=== PATIENT | male | born 1990 | race Two or more races ===

== ENCOUNTER 2020-03-03 22:59 | Emergency (ER) | payer MEDICAID, OTHER ==
[~2020-03-03] VITALS: Ht 167.6 cm; Wt 70.5 kg
[~2020-03-03 22:59] MED LIST: OMEP20 PO
[2020-03-03 23:01] VITALS: BP 142/86
[2020-03-03] MEDS ORDERED: MIRT-89 PO (23:06)
[2020-03-04] MEDS ORDERED: LIDOCAINE 1% 10 ML VIAL INJ ONE
[2020-03-04] MEDS ORDERED: PERTUSS(ACELL),DIPH,TET VAC/PF 0.5 ML VIAL IM ONE ×2 (01:15)
== END 2020-03-04 01:26 | disposition home or self-care (01) ==
LOC: EMS 22:59
DX: S61.412A Laceration without foreign body of left hand, initial encounter (principal); F17.210 Nicotine dependence, cigarettes, uncomplicated; F12.90 Cannabis use, unspecified, uncomplicated; W25.XXXA Contact with sharp glass, initial encounter; Y93.89 Activity, other specified; Y92.89 Other specified places as the place of occurrence of the external cause; Y99.8 Other external cause status
CPT/HCPCS: 12002; 90471; 90715; 99283; J3490

== ENCOUNTER 2020-03-16 04:20 | Emergency (ER) | payer OTHER ==
[~2020-03-16] VITALS: Ht 167.6 cm; Wt 63.6 kg
[~2020-03-16 04:20] MED LIST changes: +MIRT-89 PO; -OMEP20 PO
[2020-03-16 04:40] VITALS: BP 119/74
[2020-03-16] MEDS ORDERED: AMOX TR/POT CLAV 875 MG/125 MG TABLET PO ONE (05:00)
[2020-03-16] MEDS ORDERED: BACITRACIN 0.9 GM PACKET OINTMENT TP ONE (05:00)
== END 2020-03-16 05:33 | disposition home or self-care (01) ==
LOC: EMS 04:20
DX: S61.211D Laceration without foreign body of left index finger without damage to nail, subsequent encounter (principal); L03.012 Cellulitis of left finger; F12.90 Cannabis use, unspecified, uncomplicated; F17.210 Nicotine dependence, cigarettes, uncomplicated; W25.XXXD Contact with sharp glass, subsequent encounter

== ENCOUNTER 2020-03-30 22:33 | Emergency (ER) | payer OTHER ==
[~2020-03-30] VITALS: Ht 167.6 cm; Wt 70.5 kg
[2020-03-31] MEDS ORDERED: BACITRACIN 0.9 GM PACKET OINTMENT TP ONE (00:15)
[2020-03-31 00:25] VITALS: BP 129/81
== END 2020-03-31 00:29 | disposition home or self-care (01) ==
LOC: EMS 22:33
DX: S61.411A Laceration without foreign body of right hand, initial encounter (principal); F12.90 Cannabis use, unspecified, uncomplicated; W22.8XXA Striking against or struck by other objects, initial encounter; Y93.89 Activity, other specified; Y92.89 Other specified places as the place of occurrence of the external cause; Y99.8 Other external cause status
CPT/HCPCS: Z7502; Z7610

== ENCOUNTER 2023-11-02 06:35 | Emergency (ER) | payer MEDICAID, OTHER ==
[~2023-11-02] VITALS: Ht 167.6 cm; Wt 68.0 kg
[2023-11-02] MEDS: LIDOCAINE 2% VISCOUS 15 ML SOLUTION UDCUP PO ONE (07:27)
[2023-11-02 07:34] LABS: COVID AG,FIA SOURCE NASAL SWAB
[2023-11-02 08:58] LABS: SARS-COV2 (COVID) ANTIGEN,FIA Negative (Negative)
[2023-11-02 09:59] VITALS: BP 126/78; PULSE 103; RESP 18; TEMP 98.4
[2023-11-02] MEDS ORDERED: IBUP-1492 PO (10:00)
[2023-11-02] MEDS ORDERED: PENI500T2 PO (10:00)
== END 2023-11-02 10:11 | disposition home or self-care (01) ==
LOC: EMS 06:40
DX: J02.0 Streptococcal pharyngitis (principal); F12.90 Cannabis use, unspecified, uncomplicated; Z20.822 Contact with and (suspected) exposure to COVID-19
CPT/HCPCS: 87430; 99283

== ENCOUNTER 2024-10-04 15:44 | Emergency (ER) | payer MEDICAID, OTHER ==
[~2024-10-04 15:44] MED LIST changes: +IBUP-1492 PO; -MIRT-89 PO; +PENI500T2 PO
== END 2024-10-04 16:05 | disposition left against medical advice (07) ==
LOC: EMS 15:44
DX: Z00.00 Encounter for general adult medical examination without abnormal findings (principal); Z53.21 Procedure and treatment not carried out due to patient leaving prior to being seen by health care provider